=== PATIENT | female | born 1985 | race American Indian/Alaskan Native ===

== ENCOUNTER 2016-10-01 02:27 | Emergency (ER) | payer MEDICAID ==
[2016-10-01 03:40] LABS: Basophils % (Auto) 0.4 % (0.0-1.8); Eosinophils % (Auto) 1.8 % (0.0-4.3); Hematocrit 35.5 % (30.3-42.9); Hemoglobin 11.4 gm/dl (10.1-14.3); Mean Corpuscular HGB Conc 32 % (30-34); Mean Corpuscular Hemoglobin 27 pg (28-32); Mean Corpuscular Volume 84 fl (79-97); Platelet Count 188 K/mm3 (140-440); Red Blood Count 4.24 M/mm3 (3.65-5.03); Red Cell Distribution Width 15.2 % (13.2-15.2); White Blood Count 6.9 K/mm3 (4.5-11.0)
[2016-10-01 03:54] LABS: Alanine Aminotransferase 8 units/L (7-56); Albumin 3.8 g/dL (3.9-5); Alkaline Phosphatase 82 units/L (35-129); BUN/Creatinine Ratio 18.33; Bilirubin,Total 0.2 mg/dL (0.1-1.2); Blood Urea Nitrogen 11 mg/dL (7-17); Calcium 8.8 mg/dL (8.4-10.2); Carbon Dioxide 19 mmol/L (22-30); Chloride 100.9 mmol/L (98-107); Glucose 95 mg/dL (65-100); Lipase 56 units/L (13-60); Potassium 3.8 mmol/L (3.6-5.0); Sodium 136 mmol/L (137-145); Total Protein 7.6 g/dL (6.3-8.2)
[2016-10-01 04:02] LABS: Anion Gap 20 mmol/L
[2016-10-01 09:44] LABS: Bacteria,Urine 1+ /HPF (Negative); Bilirubin,Urine NEG (Negative); Blood,Urine NEG (Negative); Ketones,Urine 80 mg/dL (Negative); Leukocyte Esterase,Urine LG (Negative); Mucus,Urine 3+ /HPF; Nitrite,Urine NEG (Negative); Urobilinogen,Urine < 2.0 mg/dL (<2.0)
[2016-10-01] MEDS ORDERED: NORCO 5/325 PO ONE (10:41)
--- NOTE | 2016-10-01 10:53 | Emergency Department Report ---
ED Abdominal Pain HPI - General Chief Complaint: Abdominal Pain Stated Complaint: MOUTH PAIN Time Seen by Provider: 10/01/16 10:25 Source: patient Mode of arrival: Ambulatory Limitations: No Limitations - History of Present Illness Initial Comments: 31-year-old female presents to the emergency department complaining of abdominal pain and mouth pain. Patient states her mouth pain is along her gumline and she is seeing her dentist about this. She states her abdominal pain has been intermittent since she found out she was . Patient is approximately 4 months . She has not seen an [employer] [employer], but is scheduled for her first appointment in 3 days. Patient reports aching pain in the middle of her abdomen that doesn't radiate. She reports pain became worse after dancing at a [employer] recently. She denies nausea, vomiting, dysuria, hematuria, vaginal bleeding, or vaginal discharge. There are no other complaints. MD Complaint: abdominal pain -: Gradual, month(s) (3) Location: periumbilical Radiation: none Migration to: no migration Severity: mild Quality: aching Consistency: intermittent Improves With: nothing Worsens With: nothing Associated Symptoms: denies other symptoms - Related Data Previous Rx's Medication Instructions Recorded Last Taken Type Vit W-Ca,Fe,FA(<1 mg) 1 each PO QDAY #30 tablet 07/06/16 Unknown Rx [ Vitamins] HYDROcodone/APAP 5-325 [[address] 1 each PO Q6HR PRN #10 tablet 10/01/16 Unknown Rx 5/325] Nitrofurantoin [place]/M-Cryst 100 mg PO Q12HR #14 capsule 10/01/16 Unknown Rx [Macrobid CAP] Allergies Allergy/AdvReac Type Severity Reaction Status Date / Time No Known Allergies Allergy Unverified 05/25/16 03:23 ED Review of Systems ROS: Stated complaint: MOUTH PAIN Other details as noted in HPI Comment: All other systems reviewed and negative Gastrointestinal: abdominal pain ED Past Medical Hx - Past Medical History Previous Medical History?: Yes Hx Psychiatric Treatment: Yes (Bipolar, Schizophrenia) - Surgical History Past Surgical History?: No - Family History Family history: no significant - Social History Smoking Status: Former Smoker Substance Use Type: None - Medications Home Medications: Home Medications Medication Instructions Recorded Confirmed Last Taken Type Vit W-Ca,Fe,FA(<1 mg) 1 each PO QDAY #30 tablet 07/06/16 Unknown Rx [ Vitamins] HYDROcodone/APAP 5-325 [[address] 1 each PO Q6HR PRN #10 tablet 10/01/16 Unknown Rx 5/325] Nitrofurantoin [place]/M-Cryst 100 mg PO Q12HR #14 capsule 10/01/16 Unknown Rx [Macrobid CAP] ED Physical Exam - General Limitations: No Limitations General appearance: alert, in no apparent distress - Head Head exam: Present: atraumatic, normocephalic - Eye Eye exam: Present: normal appearance, PERRL, EOMI - ENT ENT exam: Present: normal exam, normal orophraynx, mucous membranes moist - Neck Neck exam: Present: normal inspection, full ROM. Absent: tenderness - Respiratory Respiratory exam: Present: normal lung sounds bilaterally. Absent: respiratory distress - Cardiovascular Cardiovascular Exam: Present: regular rate, normal rhythm, normal heart sounds - GI/Abdominal GI/Abdominal exam: Present: soft, normal bowel sounds. Absent: distended, tenderness - Extremities Exam Extremities exam: Present: normal inspection, full ROM. Absent: tenderness - Back Exam Back exam: Present: normal inspection, full ROM. Absent: tenderness - Neurological Exam Neurological exam: Present: alert, oriented X3. Absent: motor sensory deficit - Skin Skin exam: Present: warm, dry, intact ED Course Vital Signs 10/01/16 02:42 Temperature 98.7 F Pulse Rate 91 H Respiratory 18 Rate Blood Pressure 122/73 O2 Sat by Pulse 100 Oximetry ED Medical Decision Making - Lab Data Result diagrams: 10/01/16 02:55 10/01/16 02:55 - Medical Decision Making Lab results reviewed and discussed with the patient. heart tones at bedside measured by nursing are 144 bpm. Review of previous visit shows that the patient had an ultrasound showing an intrauterine . Patient will be discharged home with a prescription for antibodies for urinary tract infection to follow up with her [employer]. - Differential Diagnosis abdominal pain in , UTI Critical care attestation.: If time is entered above; I have spent that time in minutes in the direct care of this critically ill patient, excluding procedure time. ED Disposition Clinical Impression: Abdominal pain affecting UTI (urinary tract infection) Qualifiers: Urinary tract infection type: acute cystitis Hematuria presence: without hematuria Qualified Code(s): N30.00 - Acute cystitis without hematuria Disposition: DISCHARGED TO HOME OR SELFCARE Is pt being admited?: No Condition: Stable Instructions: Abdominal Pain (ED) Prescriptions: Nitrofurantoin [place]/M-Cryst [Macrobid CAP] 100 mg PO Q12HR #14 capsule HYDROcodone/APAP 5-325 [[address] 5/325] 1 each PO Q6HR PRN #10 tablet PRN Reason: Pain Referrals: PRIMARY CARE, [Primary Care Provider] - 3-5 Days Time of Disposition: 10:56
[2016-10-01 11:26] VITALS: BP 124/61
== END 2016-10-01 11:25 | disposition home or self-care (01) ==
LOC: ED 02:27
DX: O23.12 Infections of bladder in pregnancy, second trimester (principal); N30.00 Acute cystitis without hematuria; O99.332 Smoking (tobacco) complicating pregnancy, second trimester; F31.9 Bipolar disorder, unspecified; F20.9 Schizophrenia, unspecified; Z3A.00 Weeks of gestation of pregnancy not specified
CPT/HCPCS: 36415; 80053; 81001; 81025; 83690; 85025; 99284

== ENCOUNTER 2016-10-28 08:27 | Outpatient (CLI) | payer MEDICAID ==
[2016-10-28 10:00] VITALS: BP 112/60
[2016-10-28] MEDS ORDERED: LACTATED RINGERS 500 ML IV ONE (10:00)
[2016-10-28 13:01] LABS: Urine Drugs of Abuse Note Disclamer
--- NOTE | 2016-10-29 10:29 | Ultrasound Report ---
OB LIMITED History: Abdominal trauma during , pain. Technique: Transabdominal ultrasound with Doppler interrogation. Gestation: Single Position: Cephalic Placenta: Posterior Placental Grade: 0 Heart Rate: 149 BPM
== END 2016-10-28 12:10 | disposition home or self-care (01) ==
LOC: EDSTATUS 09:26 → TRG 09:30
PROVIDERS: ATTEND Obstetrics & Gynecology
DX: O26.892 Other specified pregnancy related conditions, second trimester (principal); S89.90XA Unspecified injury of unspecified lower leg, initial encounter; W19.XXXA Unspecified fall, initial encounter; Z3A.26 26 weeks gestation of pregnancy; Y93.89 Activity, other specified; Y92.89 Other specified places as the place of occurrence of the external cause; Y99.8 Other external cause status
CPT/HCPCS: 76815; 80307; 82962; J7120

== ENCOUNTER 2016-11-18 12:50 | Emergency (ER) | payer MEDICAID ==
--- NOTE | 2016-11-18 13:17 | Emergency Department Report ---
Chief Complaint: Psych Stated Complaint: MENTAL EVAL Time Seen by Provider: 11/18/16 13:10 - HPI History of Present Illness: 31-year-old -[place] female with a past medical history of schizophrenia bipolar diabetes Control and Reports That She Is 12 Weeks Comes in for Altered Mental Status. Patient Woke up This A.M. per Friend That Brought Her in a Reports That She Has Been Acting Weird She Was Found Plan in the Toilet This Morning Patient Stays Confusing Triage. - Exam Vital Signs: Vital Signs 11/18/16 13:04 Temperature 98.7 F Pulse Rate 112 H Respiratory 18 Rate Blood Pressure 107/68 Physical Exam: Since alert not very oriented pupils are pinpoint not following commands very well, heart rate tachycardia respiratory clear to auscultation abdomen soft nontender, MSE screening note: Focused history and physical exam performed. Due to findings the following was ordered: Altered mental status protocol initiated. EKG has been ordered patient be evaluated in the back Main ER ED Disposition for MSE Condition: Stable
[2016-11-18 14:07] LABS: Basophils % (Auto) 0.3 % (0.0-1.8); Eosinophils % (Auto) 0.1 % (0.0-4.3); Hematocrit 33.6 % (30.3-42.9); Hemoglobin 10.9 gm/dl (10.1-14.3); Mean Corpuscular HGB Conc 33 % (30-34); Mean Corpuscular Hemoglobin 28 pg (28-32); Mean Corpuscular Volume 85 fl (79-97); Platelet Count 155 K/mm3 (140-440); Red Blood Count 3.97 M/mm3 (3.65-5.03); Red Cell Distribution Width 14.5 % (13.2-15.2); White Blood Count 7.8 K/mm3 (4.5-11.0)
[2016-11-18 14:10] LABS: Alanine Aminotransferase 6 units/L (7-56); Albumin 3.5 g/dL (3.9-5); Albumin/Globulin Ratio 0.9 %; Alkaline Phosphatase 85 units/L (35-129); Anion Gap 18 mmol/L; BUN/Creatinine Ratio 11.42; Bilirubin,Total 0.5 mg/dL (0.1-1.2); Blood Urea Nitrogen 8 mg/dL (7-17); Calcium 8.7 mg/dL (8.4-10.2); Carbon Dioxide 19 mmol/L (22-30); Chloride 99.5 mmol/L (98-107); Glucose 90 mg/dL (65-100); Magnesium 1.8 mg/dL (1.7-2.3); Potassium 3.7 mmol/L (3.6-5.0); Sodium 133 mmol/L (137-145); Total Protein 7.3 g/dL (6.3-8.2)
[2016-11-18 16:06] LABS: Urine Drugs of Abuse Note Disclamer
[2016-11-18 16:27] LABS: Bilirubin,Urine NEG (Negative); Blood,Urine NEG (Negative); Ketones,Urine 80 mg/dL (Negative); Leukocyte Esterase,Urine NEG (Negative); Mucus,Urine 3+ /HPF; Nitrite,Urine NEG (Negative)
[2016-11-18] MEDS ORDERED: HALDOL IM ONE (18:36)
[2016-11-18] MEDS ORDERED: NACL 0.9% 1000 ML IV ONE (18:36)
--- NOTE | 2016-11-18 18:45 | Emergency Department Report ---
HPI <MARINA VALLES - Last Filed: 11/18/16 21:09> - HPI HPI: Chief complaint: Abnormal behavior HPI: Patient is a 31-year-old female with a history of bipolar disorder and schizophrenia who lives in a personal correction and is . Once patient became she quit taking her psychiatric medications. It appears that her only care has been when she's come to the hospital and her last visit was October 28 when she was seen in L&D and an ultrasound showed that at that time she was 22 weeks 6 days with a single IUP. Patient did not follow-up with STORAGE AND BACKUP ADMINISTRATOR that she saw in L&D. Patient went from the personal correction that she was in in [place] and visited [place] according to her friend last night and this morning she got up she began acting strange. Patient had a bowel movement and was noted to be playing with her stool. Patient does not have any complaints but is not really answering any questions. Patient's roommate where she lives called a friend of the patient's tube brought her here to the emergency department. He unfortunately cannot answer very many questions either. He does state this is not how she normally acts. Mode of arrival: private car Source: Patient old chart Began: Noticed this morning Duration: Continuous Context: See above Quality: Unable to assess Severity: Unable to assess Improved with: Unable to assess Worsened with: Unable to assess Associated signs and symptoms: Unable to assess <BRIAN WELLER - Last Filed: 11/19/16 10:32> - General Chief Complaint: Psych Time Seen by Provider: 11/18/16 13:10 ED Past Medical Hx <MARINA VALLES - Last Filed: 11/18/16 21:09> - Past Medical History Hx Diabetes: Yes (uncontrolled) Hx Psychiatric Treatment: Yes (Bipolar, Schizophrenia) - Social History Smoking Status: Unknown if ever smoked Substance Use Type: None <BRIAN WELLER - Last Filed: 11/19/16 10:32> - Medications Home Medications: Home Medications Medication Instructions Recorded Confirmed Last Taken Type Vit W-Ca,Fe,FA(<1 mg) 1 each PO QDAY #30 tablet 07/06/16 11/18/16 Unknown Rx [ Vitamins] HYDROcodone/APAP 5-325 [[place] 1 each PO Q6HR PRN #10 tablet 10/01/16 11/18/16 Unknown Rx 5/325] Nitrofurantoin [place]/M-Cryst 100 mg PO Q12HR #14 capsule 10/01/16 11/18/16 Unknown Rx [Macrobid CAP] ED Review of Systems ROS: Stated complaint: MENTAL EVAL Other details as noted in HPI <MARINA VALLES - Last Filed: 11/18/16 21:09> ROS: Stated complaint: MENTAL EVAL Other details as noted in HPI Comment: Unobtainable due to pts medical conditions (patient is not answering any questions) <BRIAN WELLER - Last Filed: 11/19/16 10:32> Physical Exam - Physical Exam Vital Signs: Vital Signs 11/18/16 11/18/16 11/18/16 13:04 13:50 13:51 Temperature 98.7 F 98.0 F Pulse Rate 112 H 90 Respiratory 18 16 16 Rate Blood Pressure 107/68 Blood Pressure 106/64 [Left] O2 Sat by Pulse 100 100 Oximetry 11/18/16 19:48 Temperature 98.8 F Pulse Rate 93 H Respiratory 18 Rate Blood Pressure Blood Pressure 126/57 [Left] O2 Sat by Pulse 98 Oximetry <MARINA VALLES - Last Filed: 11/18/16 21:09> - Physical Exam Vital Signs: Vital Signs 11/18/16 11/18/16 11/18/16 13:04 13:50 13:51 Temperature 98.7 F 98.0 F Pulse Rate 112 H 90 Respiratory 18 16 16 Rate Blood Pressure 107/68 Blood Pressure 106/64 [Left] O2 Sat by Pulse 100 100 Oximetry Physical Exam: GENERAL: The patient is well-developed well-nourished . HEENT: Normocephalic. Atraumatic. Extraocular motions are intact. Patient has dry mucous membranes. NECK: Supple. No meningitic signs are noted. There is no adenopathy noted. CHEST/LUNGS: Clear to auscultation. There is no respiratory distress noted. HEART/CARDIOVASCULAR: Regular. There is no tachycardia. There is no gallop rub or murmur. ABDOMEN: Abdomen is soft, nontender. Patient has normal bowel sounds. Abdomen is gravid heart tones are 170 in the left lower quadrant SKIN: There is no rash. There is no edema. There is no diaphoresis. NEURO: The patient is awake, alert, and noncommunicative. Patient moves all extremities and is able to ambulate. There are no focal deficits noted MUSCULOSKELETAL: There is no tenderness or deformity. There is no limitation range of motion. There is no evidence of acute injury. <BRIAN WELLER - Last Filed: 11/19/16 10:32> ED Course Vital Signs 11/18/16 11/18/16 11/18/16 13:04 13:50 13:51 Temperature 98.7 F 98.0 F Pulse Rate 112 H 90 Respiratory 18 16 16 Rate Blood Pressure 107/68 Blood Pressure 106/64 [Left] O2 Sat by Pulse 100 100 Oximetry 11/18/16 19:48 Temperature 98.8 F Pulse Rate 93 H Respiratory 18 Rate Blood Pressure Blood Pressure 126/57 [Left] O2 Sat by Pulse 98 Oximetry <MARINA VALLES - Last Filed: 11/18/16 21:09> Vital Signs 11/18/16 11/18/16 11/18/16 13:04 13:50 13:51 Temperature 98.7 F 98.0 F Pulse Rate 112 H 90 Respiratory 18 16 16 Rate Blood Pressure 107/68 Blood Pressure 106/64 [Left] O2 Sat by Pulse 100 100 Oximetry - Reevaluation(s) Reevaluation #1: 11/18/16 Discussed patient with STORAGE AND BACKUP ADMINISTRATOR and states that Haldol is a category C can be given outside of the first trimester and recommended that we try one dose of Haldol. Discussed with Dr. Aragon's partner saw the patient on L&D in October and states the patient never followed up or entered their practice. Patient herself cannot give me any history. She will allow you to evaluate her and can be calmed with talking. 11/18/16 20:10 Discussed patient with her STORAGE AND BACKUP ADMINISTRATOR and states that there is very little risk to the fetus with a head CT. Patient will be shielded. Mental health crisis spoke with Dr. Lang psychiatrist who will see the patient in the morning and probably start her on what to do at that time. 11/19/16 10:19 Patient was evaluated by psychiatry this morning and [address] scan was reviewed and positive for sinusitis. Will start patient on a Zithromax. <BRIAN WELLER - Last Filed: 11/19/16 10:32> ED Medical Decision Making - Lab Data Result diagrams: 11/18/16 13:33 11/18/16 13:33 - Radiology Data Radiology results: report reviewed (ct head: naf) <HAIMARINA C - Last Filed: 11/18/16 21:09> - Lab Data Result diagrams: 11/18/16 13:33 11/18/16 13:33 Laboratory Tests 11/18/16 11/18/16 11/18/16 13:33 13:33 13:33 Lactic Acid 0.7 ALT 6 L Albumin 3.5 L TSH 1.490 HCG, Quant Ur Specific [place] Urine Protein Urine Ketones Urine Blood Urine Nitrite Urine Bilirubin Urine Urobilinogen Ur Leukocyte Esterase Urine WBC (Auto) Urine RBC (Auto) U Epithel Cells (Auto) Urine HCG, Qual Salicylates Urine Opiates Screen Urine Methadone Screen Acetaminophen Ur Barbiturates Screen Ur Phencyclidine Scrn Ur Amphetamines Screen U Benzodiazepines Scrn Urine Cocaine Screen U Marijuana (THC) Screen Plasma/Serum Alcohol 11/18/16 11/18/16 11/18/16 13:33 13:33 13:33 Lactic Acid ALT Albumin TSH HCG, Quant 7794 H Ur Specific [place] Urine Protein Urine Ketones Urine Blood Urine Nitrite Urine Bilirubin Urine Urobilinogen Ur Leukocyte Esterase Urine WBC (Auto) Urine RBC (Auto) U Epithel Cells (Auto) Urine HCG, Qual Salicylates < 0.3 L Urine Opiates Screen Urine Methadone Screen Acetaminophen < 15.0 Ur Barbiturates Screen Ur Phencyclidine Scrn Ur Amphetamines Screen U Benzodiazepines Scrn Urine Cocaine Screen U Marijuana (THC) Screen Plasma/Serum Alcohol 11/18/16 11/18/16 11/18/16 13:33 16:01 16:05 Lactic Acid 0.8 ALT Albumin TSH HCG, Quant Ur Specific [place] 1.033 H Urine Protein 100 mg/dl Urine Ketones 80 Urine Blood Neg Urine Nitrite Neg Urine Bilirubin Neg Urine Urobilinogen 2.0 Ur Leukocyte Esterase Neg Urine WBC (Auto) 1.0 Urine RBC (Auto) 1.0 U Epithel Cells (Auto) 1.0 Urine HCG, Qual Positive A Salicylates Urine Opiates Screen Urine Methadone Screen Acetaminophen Ur Barbiturates Screen Ur Phencyclidine Scrn Ur Amphetamines Screen U Benzodiazepines Scrn Urine Cocaine Screen U Marijuana (THC) Screen Plasma/Serum Alcohol < 0.01 11/18/16 16:05 Lactic Acid ALT Albumin TSH HCG, Quant Ur Specific [place] Urine Protein Urine Ketones Urine Blood Urine Nitrite Urine Bilirubin Urine Urobilinogen Ur Leukocyte Esterase Urine WBC (Auto) Urine RBC (Auto) U Epithel Cells (Auto) Urine HCG, Qual Salicylates Urine Opiates Screen Presumptive negative Urine Methadone Screen Presumptive negative Acetaminophen Ur Barbiturates Screen Presumptive negative Ur Phencyclidine Scrn Presumptive negative Ur Amphetamines Screen Presumptive negative U Benzodiazepines Scrn Presumptive negative Urine Cocaine Screen Presumptive negative U Marijuana (THC) Screen Presumptive negative Plasma/Serum Alcohol - Medical Decision Making Discussed patient with mental health and STORAGE AND BACKUP ADMINISTRATOR. We will get a CAT scan of her head just to make sure there is no structural abnormality but I feel most likely thing is that this is secondary to her schizophrenia. We'll observe the patient here in the emergency department overnight and have her seen by psychiatry in the morning unless there is some unexpected abnormality on her CT brain. <BRIAN WELLER - Last Filed: 11/19/16 10:32> Critical care attestation.: If time is entered above; I have spent that time in minutes in the direct care of this critically ill patient, excluding procedure time. <MARINA VALLES - Last Filed: 11/18/16 21:09> Critical care attestation.: If time is entered above; I have spent that time in minutes in the direct care of this critically ill patient, excluding procedure time. <BRIAN WELLER - Last Filed: 11/19/16 10:32> ED Disposition <MARINA VALLES - Last Filed: 11/18/16 21:09> Is pt being admited?: No Does the pt Need Aspirin: No Time of Disposition: 10:19 (transfer to a psychiatric facility) <BRIAN WELLER - Last Filed: 11/19/16 10:32> Clinical Impression: Schizophrenia Qualifiers: Schizophrenia type: unspecified Qualified Code(s): F20.9 - Schizophrenia, unspecified Disposition: DC/TX PSY HOSP/PSY UNIT Condition: Serious Referrals: PRIMARY CARE,MD [Primary Care Provider] - 3-5 Days
--- NOTE | 2016-11-18 20:50 | Cat Scan Report ---
FINAL REPORT EXAM: CT HEAD/BRAIN WO CON HISTORY: ams COMPARISON: CT of the head from July 2016. TECHNIQUE: Axial images obtained skull base through vertex. FINDINGS: No acute intracranial hemorrhage, midline shift or pathologic extra axial fluid collection. Ventricles and cisterns are normal in size and configuration for the patient's age. Zimmer-white differentiation preserved. Calvarium grossly intact. Mild mucosal thickening of the paranasal sinuses. Tiny amount of fluid within the caudal right mastoid air cells. IMPRESSION: No grossly acute intracranial abnormality.
--- NOTE | 2016-11-19 08:37 | Consultation ---
History of Present Illness - Reason for Consult Consult date: 11/19/16 Reason for consult: Psychiatry Consult Requesting physician: BRIAN WELLER - Chief Complaint Chief complaint: Patient is confused - History of Present Psychiatric Illness Patient is a 31-year-old female with a history of bipolar disorder and schizophrenia who lives in a personal chcf and is . Once patient became she quit taking her psychiatric medications. Upon arrival to patient's room, she was eating and watching TV. I introduced myself and the patient states, "I have no idea what is going on." Patient is disorganized, disheveled, confused, with loose associations during interview. She had to be redirected when asked questions. Patient is a poor historian at this time. When asked, she denies SI/HI and AVH's at this time. Medications and Allergies Allergies Allergy/AdvReac Type Severity Reaction Status Date / Time No Known Allergies Allergy Verified 10/28/16 09:05 Home Medications Medication Instructions Recorded Confirmed Last Taken Type Vit W-Ca,Fe,FA(<1 mg) 1 each PO QDAY #30 tablet 07/06/16 11/18/16 Unknown Rx [ Vitamins] HYDROcodone/APAP 5-325 [[place] 1 each PO Q6HR PRN #10 tablet 10/01/16 11/18/16 Unknown Rx 5/325] Nitrofurantoin [place]/M-Cryst 100 mg PO Q12HR #14 capsule 10/01/16 11/18/16 Unknown Rx [Macrobid CAP] Past psychiatric history - Past Medical History Past Medical History: other Past Surgical History: Other (unable to assess) - past Psychiatric treatment and history Psych: Bipolar, Schizophrenia psychiatric treatment history: Unable to assess - Social History Social history: other (Currently ) Mental Status Exam - Vital signs Last Vital Signs Temp 98 F 11/19/16 06:03 Pulse 83 11/19/16 06:03 Resp 20 11/19/16 06:03 BP 108/43 11/19/16 06:03 Pulse Ox 96 11/19/16 06:03 - Exam Narrative exam: (+) Delusional, (+) Psychosis Orientation: person Affect: flat Mood: congruent with affect Thought content: delusions Thought Process: Loose Associations Perceptions: other (patient denies) Speech: slow Concentration: distractible, unable to pay attention Motor activity: other (Lying upright in bed) Level of consciousness: confused Sleep Symptoms: None (unable to assess) Interaction: pleasant Results Result Diagrams: 11/18/16 13:33 11/18/16 13:33 Abnormal lab results 11/18/16 11/18/16 11/18/16 Range/Units 13:33 13:33 13:33 [place] % (Auto) 8.1 H (0.0-7.3) % Sodium 133 L (137-145) mmol/L Carbon Dioxide 19 L (22-30) mmol/L ALT 6 L (7-56) units/L Albumin 3.5 L (3.9-5) g/dL HCG, Quant 7794 H (0-4) mIU/mL Ur Specific [place] (1.003-1.030) Urine HCG, Qual (Negative) Salicylates (2.8-20.0) mg/dL 11/18/16 11/18/16 Range/Units 13:33 16:05 [place] % (Auto) (0.0-7.3) % Sodium (137-145) mmol/L Carbon Dioxide (22-30) mmol/L ALT (7-56) units/L Albumin (3.9-5) g/dL HCG, Quant (0-4) mIU/mL Ur Specific [place] 1.033 H (1.003-1.030) Urine HCG, Qual Positive A (Negative) Salicylates < 0.3 L (2.8-20.0) mg/dL All other labs normal. Assessment and Plan Assessment and plan: Impression: Hx of Schizophrenia and Bipolar Disorder. Patient is confused and disorganized at this time. Patient has been off psychiatric medication since she became . Patient is currently . Recommendation: Initiate 1013 if indicated and reassess tomorrow for possible transfer to inpatient psychiatry services.
[2016-11-19] MEDS ORDERED: ZITHROMAX PO SCH (11:00)
[2016-11-19] MEDS: TRIMOX PO SCH ×2 (14:18→21:03)
--- NOTE | 2016-11-19 18:44 | Ultrasound Report ---
FINAL REPORT EXAM: US OB \T\gt; = 14 WEEKS FETUS HISTORY: , altered mental status COMPARISONS: 07/06/2016 FINDINGS: Limited transabdominal grayscale, color and M-mode 2nd trimester ultrasound Single living intrauterine in breech presentation with recorded cardiac activity of 130 beats per minute. Amniotic fluid volume is subjectively normal and amniotic fluid index measures approximately 13.5 cm. Biparietal diameter is 6.1 cm. Head circumference is 23.9 cm. Abdominal circumference is 20 cm. Femoral length is 4.7 cm. Composite of these measurements results in estimated gestational age of 24 weeks 4 days and estimated delivery date of 03/07/2017, which is concordant with prior establish dating. No gross abnormality is identified. The skin line overlying the spine and diaphragm are suboptimally visualized on this exam. IMPRESSION: Single living intrauterine without acute complication identified.
[2016-11-19 21:52] VITALS: BP 108/58
[2016-11-19] MEDS ORDERED: HALDOL PO SCH (22:00)
== END 2016-11-19 23:00 ==
LOC: ED 12:50 → EEVIPCON 12:50 → ED 11-19 23:00
DX: O99.342 Other mental disorders complicating pregnancy, second trimester (principal); F31.9 Bipolar disorder, unspecified; F20.9 Schizophrenia, unspecified; Z3A.28 28 weeks gestation of pregnancy
CPT/HCPCS: 36415; 70450; 80053; 80307; 81001; 81025; 82140; 82962; 83735; 84443; 84702; 85025; 93005; 93010; 96360; 96361; 96372; 99285; G0480; J1630; J7030; 80320

== ENCOUNTER 2016-12-27 12:54 | Inpatient (IN) | payer MEDICAID ==
[2016-12-27] MEDS ORDERED: ZOFRAN IV PRN (13:08)
[2016-12-27] MEDS ORDERED: TYLENOL PO PRN (13:08)
[2016-12-27] MEDS ORDERED: COLACE PO PRN (13:08)
[2016-12-27] MEDS ORDERED: ROBITUSSIN DM PO PRN (13:08)
[2016-12-27] MEDS ORDERED: MYLICON PO PRN (13:08)
[2016-12-27] MEDS ORDERED: BENADRYL PO PRN (13:08)
[2016-12-27] MEDS: LACTATED RINGERS 1,000 ML IV SCH (15:15)
[2016-12-27 15:16] LABS: Basophils % (Auto) 0.5 % (0.0-1.8); Eosinophils % (Auto) 1.7 % (0.0-4.3); Hematocrit 29.9 % (30.3-42.9); Hemoglobin 9.6 gm/dl (10.1-14.3); Mean Corpuscular HGB Conc 32 % (30-34); Mean Corpuscular Hemoglobin 27 pg (28-32); Mean Corpuscular Volume 85 fl (79-97); Platelet Count 180 K/mm3 (140-440); Red Blood Count 3.51 M/mm3 (3.65-5.03); Red Cell Distribution Width 14.7 % (13.2-15.2)
[2016-12-27 15:22] LABS: Bacteria,Urine 1+ /HPF (Negative); Bilirubin,Urine NEG (Negative); Blood,Urine SM (Negative); Ketones,Urine NEG (Negative); Leukocyte Esterase,Urine LG (Negative); Mucus,Urine FEW /HPF; Nitrite,Urine NEG (Negative); Protein,Urine <15 mg/dL mg/dL (Negative); Urobilinogen,Urine < 2.0 mg/dL (<2.0)
[2016-12-27 15:34] LABS: Alanine Aminotransferase 7 units/L (7-56); Albumin 3.2 g/dL (3.9-5); Alkaline Phosphatase 139 units/L (35-129); Anion Gap 17 mmol/L; Bilirubin,Total 0.2 mg/dL (0.1-1.2); Blood Urea Nitrogen 6 mg/dL (7-17); Calcium 8.8 mg/dL (8.4-10.2); Carbon Dioxide 20 mmol/L (22-30); Chloride 103.6 mmol/L (98-107); Glucose 78 mg/dL (65-100); Potassium 3.8 mmol/L (3.6-5.0); Sodium 137 mmol/L (137-145)
--- NOTE | 2016-12-27 15:38 | History and Physical Report ---
History of Present Illness Date of examination: 12/27/16 (pt sent to Triage by an outside provider for antibiotic therapy) Date of admission: 12/27/16 13:09 Chief complaint: painful and frequent urination History of present illness: EDC 02/16/17 32w5d Pt began her PNC 10-18-16 She is going to [facility]. Pt states she has mental illness. Has been on Risperidone and Benztropine. Pt denies ETOH, street drugs, smoking. Pt was admitted to psych facility in November and they started her on her meds. Past History - Obstetrical History Expected Date of Delivery: 02/16/17 Actual Gestation: 32 Week(s) 5 Day(s) : 2 Para: 1 Number of Living Children: 1 Medications and Allergies Allergies Allergy/AdvReac Type Severity Reaction Status Date / Time No Known Allergies Allergy Verified 10/28/16 09:05 Home Medications Medication Instructions Recorded Confirmed Last Taken Type Vit W-Ca,Fe,FA(<1 mg) 1 each PO QDAY #30 tablet 07/06/16 11/18/16 Unknown Rx [ Vitamins] HYDROcodone/APAP 5-325 [[place] 1 each PO Q6HR PRN #10 tablet 10/01/16 11/18/16 Unknown Rx 5/325] Nitrofurantoin [place]/M-Cryst 100 mg PO Q12HR #14 capsule 10/01/16 11/18/16 Unknown Rx [Macrobid CAP] Active Meds: Active Medications Acetaminophen (Tylenol) 650 mg PO Q4H PRN PRN Reason: Pain MILD(1-3)/Fever >100.5/LE Diphenhydramine HCl (Benadryl) 25 mg PO Q6H PRN PRN Reason: Itching Docusate Sodium (Colace) 100 mg PO Q12H PRN PRN Reason: Constipation Guaifenesin (Robitussin Dm) 10 ml PO Q6H PRN PRN Reason: Cough Ceftriaxone Sodium (Rocephin/Ns 1 Gm/50 Ml) 1 gm in 50 mls @ 100 mls/hr IV Q12HR LUKE PRN Reason: Protocol Lactated Ringer's (Lactated Ringers) 1,000 mls @ 125 mls/hr IV DIRECT [facility]KE Last Admin: 12/27/16 15:15 Dose: 125 mls/hr Multivitamins/Iron/Calcium ( Vitamin) 1 each PO QDAY [facility] Ondansetron HCl (Zofran) 4 mg IV Q6H PRN PRN Reason: Nausea And Vomiting Simethicone (Mylicon) 80 mg PO Q6H PRN PRN Reason: Gas pain Trimethoprim/Sulfamethoxazole (Bactrim Ds) 1 each PO Q12HR [facility]KE Review of Systems Psychiatric: memory loss, difficulties concentrating - Vital Signs Vital signs: Vital Signs Pulse Pulse Ox 85 98 12/27/16 13:48 12/27/16 13:48 Temp Pulse Resp BP Pulse Ox 97.6 F 85 20 114/57 100 12/27/16 13:52 12/27/16 14:08 12/27/16 13:52 12/27/16 13:52 12/27/16 14:08 - Physical Exam Breasts: Positive: deferred Cardiovascular: Regular rate Lungs: Positive: Normal air movement Abdomen: Positive: normal appearance Genitourinary (Female): Positive: normal external genitalia Extremities: Positive: normal Deep Tendon Reflex Grade: Normal +2 - Obstetrical FHR: category 1 Uterine Contraction Monitor Mode: External Uterine Contraction Pattern: Absent Uterine Tone Measurement Phase: Resting Results Result Diagrams: 12/27/16 13:31 Abnormal lab results 12/27/16 Range/Units 13:31 RBC 3.51 L (3.65-5.03) M/mm3 Hgb 9.6 L (10.1-14.3) gm/dl Hct 29.9 L (30.3-42.9) % MCH 27 L (28-32) pg All other labs normal. Following are from her PNR: O+ negative antibody SCT negative GTT 84 / A1c 4.6 RPR NR HIV NR Rubella IMMUNE Hep B negative UDS negative Assessment and Plan [facility] called and spoke to [facility] in Triage and alterted her that pt may come to us due to distance to [facility]. [facility] is closer. Pt PNR was sent over with a urine culture result of Acinetobacter baumanni the provider of record was asking for pt to receive IV antibiotics for treatment. I called and spoke with Dr.G. Clarke she states pt was instructed to go to [facility] but was unable to make it there so they instructed her to go to the closest hospital. Pt only needs IV abx to treat UTI. Consulted with . Pt will be admitted to APU and given antibiotics. Case Mgt to see pt. also a Psych consult was ordered. I spoke with both and they will see the pt. Pt is A&O X 3 and seems to be aware of her reason for admission. Plan: 1. APU 2. NST 3. CBC, CMP, UA 4. Rocephin IV & Bactrim DS po 5. Consults: CM & MH
[2016-12-27 16:01] LABS: Albumin/Globulin Ratio 0.9 %; Total Protein 6.8 g/dL (6.3-8.2)
[2016-12-27] MEDS: ROCEPHIN/NS 1 GM/50 ML 1 GM/50 ML BAG IV SCH (17:49)
[2016-12-27] MEDS: BACTRIM DS PO SCH (17:49)
--- NOTE | 2016-12-28 05:50 | Progress Note ---
Assessment and Plan - Patient Problems (1) 32 weeks gestation of Current Visit: Yes Status: Acute (2) Cystitis during in third trimester, antepartum Onset Date: ~12/26/16 Current Visit: Yes Status: Acute Plan to address problem: Pt awake sitting in bed NST reactive. VSS No ctx. Antibiotics being given as scheduled. Pt's only c/o mouth pain "I have a loose tooth." We talked about her seeing a dentist after d/c. Encouraged her to ask her provider for a dental letter. Waiting for mental health to see pt Spoke with Darwin this morning to inquire about consult. He states someone will see her this AM. Will continue POC as ordered. Subjective - Subjective Date of service: 12/28/16 (A&O X 3) Principal diagnosis: IUP @ 32w6d; cystitis Interval history: EDC 02/16/17 32w5d Pt began her PNC 10-18-16 She is going to [facility]. Pt states she has mental illness. Has been on Risperidone and Benztropine. Pt denies ETOH, street drugs, smoking. Pt was admitted to psych facility in November and they started her on her meds. Patient reports: movement normal Objective - Vital Signs Vital Signs: Vital Signs - 12hr 12/27/16 12/27/16 12/27/16 18:06 19:20 20:32 Temperature 98.4 F 96.6 F L Pulse Rate 88 82 Respiratory 20 18 Rate Blood Pressure 112/56 115/54 12/27/16 12/28/16 12/28/16 20:33 00:10 05:19 Temperature 96.7 F L Pulse Rate 86 83 Respiratory 16 Rate Blood Pressure 113/54 110/54 12/28/16 05:40 Temperature 97.6 F Pulse Rate Respiratory 18 Rate Blood Pressure - Exam Breasts: deferred Cardiovascular: Regular rate Lungs: Normal air movement Abdomen: Present: normal appearance, soft. Absent: distention, tenderness Vulva: both: normal Uterus: Present: normal FHR: auscultation normal, category 1 (reactive NST) Uterine Contraction Pattern: Absent Uterine Tone Measurement Phase: Resting Extremities: edema Deep Tendon Reflex Grade: Normal +2 - Labs Labs: Abnormal Labs 12/27/16 12/27/16 13:31 13:31 RBC 3.51 L Hgb 9.6 L Hct 29.9 L MCH 27 L Carbon Dioxide 20 L BUN 6 L Creatinine 0.6 L Alkaline Phosphatase 139 H Albumin 3.2 L Laboratory Results - last 24 hr 12/27/16 12/27/16 12/27/16 13:31 13:31 14:30 WBC 8.0 RBC 3.51 L Hgb 9.6 L Hct 29.9 L MCV 85 MCH 27 L MCHC 32 RDW 14.7 Plt Count 180 Lymph % (Auto) 27.9 Branch % (Auto) 6.9 Eos % (Auto) 1.7 Baso % (Auto) 0.5 Lymph # 2.2 Branch # 0.5 Eos # 0.1 Baso # 0.0 Seg Neutrophils % 63.0 Seg Neutrophils # 5.0 Sodium 137 Potassium 3.8 Chloride 103.6 Carbon Dioxide 20 L Anion Gap 17 BUN 6 L Creatinine 0.6 L Estimated GFR > 60 BUN/Creatinine Ratio 10.00 Glucose 78 Calcium 8.8 Total Bilirubin 0.2 AST 13 ALT 7 Alkaline Phosphatase 139 H Total Protein 6.8 Albumin 3.2 L Albumin/Globulin Ratio 0.9 Urine Color Yellow Urine Turbidity Clear Urine pH 6.0 Ur Specific [place] 1.014 Urine Protein <15 mg/dl Urine Glucose (UA) Neg Urine Ketones Neg Urine Blood Sm Urine Nitrite Neg Urine Bilirubin Neg Urine Urobilinogen < 2.0 Ur Leukocyte Esterase Lg Urine WBC (Auto) 1.0 Urine RBC (Auto) 21.0 U Epithel Cells (Auto) 3.0 Urine Bacteria (Auto) 1+ Urine Mucus Few Blood Type Antibody Screen JACKSON Antibody Screen 12/27/16 14:30 WBC RBC Hgb Hct MCV MCH MCHC RDW Plt Count Lymph % (Auto) Branch % (Auto) Eos % (Auto) Baso % (Auto) Lymph # Branch # Eos # Baso # Seg Neutrophils % Seg Neutrophils # Sodium Potassium Chloride Carbon Dioxide Anion Gap BUN Creatinine Estimated GFR BUN/Creatinine Ratio Glucose Calcium Total Bilirubin AST ALT Alkaline Phosphatase Total Protein Albumin Albumin/Globulin Ratio Urine Color Urine Turbidity Urine pH Ur Specific [place] Urine Protein Urine Glucose (UA) Urine Ketones Urine Blood Urine Nitrite Urine Bilirubin Urine Urobilinogen Ur Leukocyte Esterase Urine WBC (Auto) Urine RBC (Auto) U Epithel Cells (Auto) Urine Bacteria (Auto) Urine Mucus Blood Type O POSITIVE Antibody Screen TNR JACKSON Antibody Screen Negative
[2016-12-28] MEDS ORDERED: ROCEPHIN/NS 1 GM/50 ML 1 GM/50 ML BAG IV SCH ×2 (06:00→10:00)
[2016-12-28] MEDS: BACTRIM DS PO SCH ×2 (06:14→17:07)
[2016-12-28] MEDS: ROCEPHIN/NS 1 GM/50 ML 1 GM/50 ML BAG IV SCH (06:15)
[2016-12-28] MEDS: LACTATED RINGERS 1,000 ML IV SCH ×2 (06:18→14:21)
--- NOTE | 2016-12-28 07:40 | Event Note ---
Date: 12/28/16 Agree with MW/SUSTAINABILITY ANALYST exam and note. Will con't current management at this time with IV antibx and plan to d/c home after seen and cleared by shakeel and antibx therapy completed.
[2016-12-28] MEDS ORDERED: PRENATAL VITAMIN PO SCH (10:00)
[2016-12-28 13:09] VITALS: BP 120/58
--- NOTE | 2016-12-28 13:48 | Consultation ---
History of Present Illness - Reason for Consult Consult date: 12/28/16 Reason for consult: Mental Health Evaluation Requesting physician: CHELSEA ORNELAS - Chief Complaint Chief complaint: "I am feeling fine today" - History of Present Psychiatric Illness This is a 31 y.o. AA and 32w5d. She was admitted to treat an bacterial infection. Today patient is calm and cooperative during assessment. She was able to tell me the reason she was admitted to [facility] and where she resides. Patient lives at a transitional home in [place], [place]. She was transported here by the transitional home director Joanie Wheatley. Patient is seen at the [facility] ([facility] The patient and the transitional home director was informed by the [facility] staff to go to the nearest hospital for treatment. Currently, patient have been taking Risperdal and Cogentin. Per the patient, she took her medication last on Sunday12/26/2016. She stated, "My medication works for me." Patient denies SI/HI's, AVH's, poor appetite, depression, or sleep disturbance. She denies recreational drug use or consumption of alcohol ( etoh). She admits to being hospitalized Nov 2016 [facility] (psy services). Patient has a 4 year old son that resides with her at the transitional home. Collateral Information (Joanie Wheatley) - Miss Wheatley confirmed that patient reside at a transitional home and have no problem with her returning. She stated since November 2016, patient have not had a psychotic episode. She states that [facility] provides outpatient psy service for the patient. She states that they visit the patient once a week. She confirmed that the patient do have a son who reside at the transitional home with her. Medications and Allergies Allergies Allergy/AdvReac Type Severity Reaction Status Date / Time No Known Allergies Allergy Verified 10/28/16 09:05 Home Medications Medication Instructions Recorded Confirmed Last Taken Type Vit W-Ca,Fe,FA(<1 mg) 1 each PO QDAY #30 tablet 07/06/16 11/18/16 Unknown Rx [ Vitamins] HYDROcodone/APAP 5-325 [[place] 1 each PO Q6HR PRN #10 tablet 10/01/16 11/18/16 Unknown Rx 5/325] Nitrofurantoin [place]/M-Cryst 100 mg PO Q12HR #14 capsule 10/01/16 11/18/16 Unknown Rx [Macrobid CAP] Sulfamethoxazole/Trimethoprim 1 each PO BID #10 tablet 12/28/16 Unknown Rx [Bactrim DS TAB] Active Meds: Active Medications Acetaminophen (Tylenol) 650 mg PO Q4H PRN PRN Reason: Pain MILD(1-3)/Fever >100.5/LE Diphenhydramine HCl (Benadryl) 25 mg PO Q6H PRN PRN Reason: Itching Docusate Sodium (Colace) 100 mg PO Q12H PRN PRN Reason: Constipation Guaifenesin (Robitussin Dm) 10 ml PO Q6H PRN PRN Reason: Cough Lactated Ringer's (Lactated Ringers) 1,000 mls @ 125 mls/hr IV DIRECT [facility] Last Admin: 12/28/16 06:18 Dose: 125 mls/hr Ceftriaxone Sodium (Rocephin/Ns 1 Gm/50 Ml) 1 gm in 50 mls @ 100 mls/hr IV Q12H [facility] PRN Reason: Protocol Multivitamins/Iron/Calcium ( Vitamin) 1 each PO QDAY [facility] Ondansetron HCl (Zofran) 4 mg IV Q6H PRN PRN Reason: Nausea And Vomiting Simethicone (Mylicon) 80 mg PO Q6H PRN PRN Reason: Gas pain Trimethoprim/Sulfamethoxazole (Bactrim Ds) 1 each PO Q12HR [facility] Last Admin: 12/28/16 06:14 Dose: 1 each Past psychiatric history - Past Medical History Past Medical History: other (Previous ) Past Surgical History: No surgical history - past Psychiatric treatment and history Psych: Bipolar, Depression, Schizophrenia psychiatric treatment history: A inpatient [facility] Nov 2016. Denies fam psy hx. Mental Status Exam - Vital signs Last Vital Signs Temp 98.9 F 12/28/16 09:44 Pulse 85 12/28/16 13:41 Resp 15 12/28/16 09:44 BP 120/58 12/28/16 13:05 Pulse Ox 99 12/28/16 13:41 - Exam Narrative exam: ROS (-) psychosis, (-) depression MSE: Appearance: calm, cooperative Behavior: poor eye contact Speech: regular rate and tone Mood: "I feel good" Affect: flat Thought Process: circumstantial Thought Content: denies SI/HI's and AVH's Motor Activity: ambulatory Cognition: A/Ox3 Insight: fair Judgment: fair Results Result Diagrams: 12/27/16 13:31 12/27/16 13:31 Abnormal lab results 12/27/16 12/27/16 Range/Units 13:31 13:31 RBC 3.51 L (3.65-5.03) M/mm3 Hgb 9.6 L (10.1-14.3) gm/dl Hct 29.9 L (30.3-42.9) % MCH 27 L (28-32) pg Carbon Dioxide 20 L (22-30) mmol/L BUN 6 L (7-17) mg/dL Creatinine 0.6 L (0.7-1.2) mg/dL Alkaline Phosphatase 139 H (35-129) units/L Albumin 3.2 L (3.9-5) g/dL All other labs normal. Assessment and Plan Assessment and plan: Impression: Hx of Schizophrenia/Bipolar. This is a 31 y.o. AA and 32w5d. She was admitted to treat an bacterial infection. Today patient is calm and cooperative during assessment. She was able to tell me the reason she was admitted to [facility] and where she resides. Patient reside at a transitional home in [place], [place]. She was transported here by the transitional home director, Joanie Wheatley. Patient is seen at the [facility] ([facility] She denies SI/HI's and AVH's. Collateral Information (Joanie Wheatley) - Miss Wheatley confirmed that patient reside at a transitional home and have no problem with her returning. She stated since November 2016, patient have not had a psychotic episode. She states that [facility] provides outpatient psy service for the patient. She states that they visit the patient once a week. She confirmed that the patient do have a son who reside at the transitional home with her. Recommendation/Plan: Patient can continue her current medication regimen and follow up with her psychiatrist in the outpatient setting. Psychiatry sign off this patient. Reconsult when indicated.
--- NOTE | 2016-12-28 16:53 | Discharge Summary ---
Providers - Providers Date of Admission: 12/27/16 13:09 Date of discharge: 12/28/16 Attending physician: FLOYD AMAYA 12/27/16 Consult to Case Management [CONS] Routine Services Needed at Discharge: Veterinary Epidemiologist Notified:: EZIO Phone number called:: [phone] Was contact made?: Yes If yes, spoke with:: EZIO Bruno called:: 13:50 Additional Physician Instructions: please see previous admission notes ? living conditions 12/27/16 13:20 Consult to Mental Health [CONS] Routine Reason For Exam: pt has previous dx of bipolar and is [address] consult to:: ED CRISIS Notified:: AUGUSTUS Phone number called:: [phone] Was contact made?: Yes If yes, spoke with:: AUGUSTUS Bruno called:: 13:50 Primary care physician: OCCUPATIONAL HEALTH MANAGER Hospitalization Condition: Good Hospital course: uncomplicated treated as requested for UTI Disposition: DISCHARGED TO HOME OR SELFCARE - Discharge Diagnoses (1) 32 weeks gestation of Status: Acute Comment: follow up with provider of record in one week (2) Cystitis during in third trimester, antepartum Status: Acute Comment: RX Bactrim DS @ discharge Core Measure Documentation - Palliative Care Palliative Care/ Comfort Measures: Not Applicable - Core Measures Any of the following diagnoses?: none - VTE Discharge Requirements Deep Vein Thrombosis/Pulmonary Embolism Present on Admission: No Has pt received <5 days of overlap therapy or INR<2.0: No Anticoagulant overlap therapy prescribed at discharge: No Contraindication No Overlap Therapy order at DC: Not Indicated - Acute PR Discharge Requirements Aspirin at discharge: No Reason for no aspirin on DC: Medical contraindication MICHELET/ARB for LVSD if EF <40%: Not Applicable Reason for no MICHELET/ARB: Medical contraindication Beta kavita at discharge: No Reason for no beta kavita on DC: Medical contraindication Statin for LDL = or >100 mg/dl on DC: Not Applicable Reason for no statin on DC: Medical contraindication - Heart Failure Discharge Requirements MICHELET/ARB for LVSD if EF <40%: Not Applicable Reason for no MICHELET/ARB: Medical contraindication Beta kavita at discharge: No Reason for no beta kavita on DC: Medical contraindication - Stroke Discharge Requirements Statin for LDL = or >70 mg/dl on DC: Not Applicable Reason for no statin on DC: Not Indicated Anticoag for atrial fib/atrial flutter: Not Applicable Antithrombotic for ischemic stroke: No Reason for no antithrombotic on DC: Not Indicated Exam - Constitutional Vitals: Temp Pulse Resp BP Pulse Ox 97.9 F 82 15 120/58 100 12/28/16 13:05 12/28/16 13:46 12/28/16 09:44 12/28/16 13:05 12/28/16 13:46 General appearance: Present: no acute distress, well-nourished - EENT Eyes: Present: EOM intact ENT: hearing intact, clear oral mucosa, dentition normal - Neck Neck: Present: supple, normal ROM - Respiratory Respiratory effort: normal - Cardiovascular Rhythm: regular - Extremities Extremities: no ischemia, pulses intact, No edema Peripheral Pulses: within normal limits - Abdominal General gastrointestinal: Present: deferred Female genitourinary: Present: deferred - Rectal Rectal Exam: deferred - Integumentary Integumentary: Present: clear, warm, dry - Musculoskeletal Musculoskeletal: strength equal bilaterally - Psychiatric Psychiatric: appropriate mood/affect, other (please see MH note ) Plan Activity: no restrictions Diet: regular Special Instructions: other (follow up with your Mental Health provider in 1 week and your OB in 1 week) Follow up with: PRIMARY CARE, [Primary Care Provider] - 7 Days CHELSEA ORNELAS CNM [Advanced Practice Nurse] - 7 Days (Please call [facility] for an appointment in one week. Call your Mental health provider for an appointment in 1 week. Please take medication as prescribed. )
== END 2016-12-28 18:03 | disposition home or self-care (01) | DRG 781 ==
LOC: LD 12:54 → OBSVTOIN 13:09 → LD 13:09
PROVIDERS: ADMIT Obstetrics & Gynecology; ATTEND Obstetrics & Gynecology
DX: O23.13 Infections of bladder in pregnancy, third trimester (principal); B96.89 Other specified bacterial agents as the cause of diseases classified elsewhere; O99.343 Other mental disorders complicating pregnancy, third trimester; F31.9 Bipolar disorder, unspecified; Z3A.32 32 weeks gestation of pregnancy
CPT/HCPCS: 36415; 80053; 81001; 85025; 86850; 86900; 86901; G0379; J0696; J7120

== ENCOUNTER 2017-02-05 21:38 | Outpatient (CLI) | payer MEDICAID | END 2017-02-05 23:18 | disposition home or self-care (01) | LOC: TRG 21:38 | PROVIDERS: ATTEND Obstetrics & Gynecology | DX: O47.03 False labor before 37 completed weeks of gestation, third trimester (principal); Z3A.36 36 weeks gestation of pregnancy ==

== ENCOUNTER 2017-02-08 15:00 | Emergency (ER) | payer MEDICAID ==
[2017-02-08 15:58] LABS: Basophils % (Auto) 0.4 % (0.0-1.8); Hematocrit 29.2 % (30.3-42.9); Hemoglobin 9.4 gm/dl (10.1-14.3); Mean Corpuscular HGB Conc 32 % (30-34); Mean Corpuscular Hemoglobin 27 pg (28-32); Mean Corpuscular Volume 82 fl (79-97); Platelet Count 152 K/mm3 (140-440); Red Blood Count 3.56 M/mm3 (3.65-5.03); Red Cell Distribution Width 13.9 % (13.2-15.2); White Blood Count 6.3 K/mm3 (4.5-11.0)
[2017-02-08 16:03] LABS: Urine Drugs of Abuse Note Disclamer
[2017-02-08 16:09] LABS: Anion Gap 16 mmol/L; Blood Urea Nitrogen 7 mg/dL (7-17); Calcium 8.3 mg/dL (8.4-10.2); Carbon Dioxide 21 mmol/L (22-30); Chloride 103.4 mmol/L (98-107); Glucose 79 mg/dL (65-100); Potassium 3.6 mmol/L (3.6-5.0); Sodium 137 mmol/L (137-145)
[2017-02-08 16:13] LABS: Bilirubin,Urine NEG (Negative); Blood,Urine NEG (Negative); Ketones,Urine NEG (Negative); Leukocyte Esterase,Urine NEG (Negative); Mucus,Urine 2+ /HPF; Nitrite,Urine NEG (Negative); RBC,Urine < 1.0 /HPF (0.0-6.0)
--- NOTE | 2017-02-08 20:48 | Emergency Department Report ---
HPI - General Chief Complaint: Psych Time Seen by Provider: 02/08/17 20:21 - HPI HPI: This is a 32-year-old Af[place] female who presents to the emergency department with complaint of depression and suicidal ideations. The patient is 8 months and with one child. She says that she is depressed because the boyfriend "lose his job more than he loves me in my child." She denies any abdominal pain, vaginal bleeding, fever, nausea, vomiting or any other physical complaints at this time. She does have a past medical history of bipolar disorder and schizophrenia but is not currently on any medications. She says she was dropped off by her therapist. ED Past Medical Hx - Past Medical History Previous Medical History?: Yes Hx Hypertension: No Hx Diabetes: No Hx Deep Vein Thrombosis: No Hx Renal Disease: No Hx Sickle Cell Disease: No Hx Seizures: No Hx Psychiatric Treatment: Yes (Bipolar, Schizophrenia) Hx Asthma: No Hx COPD: No Hx HIV: No - Surgical History Past Surgical History?: No - Social History Smoking Status: Never Smoker Substance Use Type: None - Medications Home Medications: Home Medications Medication Instructions Recorded Confirmed Last Taken Type Vit W-Ca,Fe,FA(<1 mg) 1 each PO QDAY #30 tablet 07/06/16 11/18/16 Unknown Rx [ Vitamins] HYDROcodone/APAP 5-325 [[place] 1 each PO Q6HR PRN #10 tablet 10/01/16 11/18/16 Unknown Rx 5/325] Nitrofurantoin [place]/M-Cryst 100 mg PO Q12HR #14 capsule 10/01/16 11/18/16 Unknown Rx [Macrobid CAP] Sulfamethoxazole/Trimethoprim 1 each PO BID #10 tablet 12/28/16 Unknown Rx [Bactrim DS TAB] ED Review of Systems ROS: Stated complaint: MH/EVAL/ 8 MO PREG Other details as noted in HPI Comment: All other systems reviewed and negative Constitutional: denies: chills, fever Eyes: denies: eye pain, eye discharge, vision change ENT: denies: ear pain, throat pain Respiratory: denies: cough, shortness of breath, wheezing Cardiovascular: denies: chest pain, palpitations Gastrointestinal: denies: abdominal pain, nausea, diarrhea Genitourinary: denies: urgency, dysuria, discharge Musculoskeletal: denies: back pain, joint swelling, arthralgia Skin: denies: rash, lesions Neurological: denies: headache, weakness, paresthesias Physical Exam - Physical Exam Vital Signs: Vital Signs 02/08/17 15:33 Temperature 98.4 F Pulse Rate 73 Respiratory 16 Rate Blood Pressure 113/83 O2 Sat by Pulse 100 Oximetry Physical Exam: GENERAL: The patient is well-developed well-nourished. HEENT: Normocephalic. Atraumatic. Extraocular motions are intact. Patient has moist mucous membranes. Pupils equal reactive to light bilaterally. NECK: Supple. Trachea is midline. CHEST/LUNGS: Clear to auscultation. There is no respiratory distress noted. HEART/CARDIOVASCULAR: Regular. There is no tachycardia. There is no gallop rub or murmur. ABDOMEN: Abdomen is soft, nontender. Patient has normal bowel sounds. Gravid uterus is palpable just below the xiphoid process. SKIN: Skin is warm and dry. NEURO: The patient is awake, alert, and oriented. The patient is cooperative. The patient has no focal neurologic deficits. The patient has normal speech. MUSCULOSKELETAL: There is no tenderness or deformity. There is no limitation range of motion. There is no evidence of acute injury. ED Course Vital Signs 02/08/17 15:33 Temperature 98.4 F Pulse Rate 73 Respiratory 16 Rate Blood Pressure 113/83 O2 Sat by Pulse 100 Oximetry ED Medical Decision Making - Lab Data Result diagrams: 02/08/17 15:41 02/08/17 15:41 - Radiology Data Radiology results: report reviewed ultrasound shows a live intrauterine at 36 weeks. - Medical Decision Making 32-year-old female who is about 36 weeks presents with suicidal ideations and depression over the attention she appears to be getting by her significant other. She has a plan to overdose on pills. For this reason the patient has been made a 1013. Labs are unremarkable including blood alcohol level and urine drug screen. The was evaluated with a ultrasound that shows a live intrauterine . Vital signs stable throughout her ED course. Patient appears medically cleared for any type of psychiatric placement. - Differential Diagnosis , depression, bipolar disorder Critical Care Time: No Critical care attestation.: If time is entered above; I have spent that time in minutes in the direct care of this critically ill patient, excluding procedure time. ED Disposition Clinical Impression: Suicidal ideations Qualifiers: Weeks of gestation: 36 weeks Qualified Code(s): Z3A.36 - 36 weeks gestation of Depression Qualifiers: Depression Type: unspecified Qualified Code(s): F32.9 - Major depressive disorder, single episode, unspecified Disposition: DC/TX-65 PSY HOSP/PSY UNIT Is pt being admited?: No Condition: Stable Referrals: PRIMARY CARE, [Primary Care Provider] - 3-5 Days Time of Disposition: 01:53
--- NOTE | 2017-02-09 00:24 | Ultrasound Report ---
FINAL REPORT PROCEDURE: US OB \T\gt; = 14 WEEKS FETUS TECHNIQUE: Real-time limited sonographic examination was performed for evaluation of size, position, heartbeat, fluid volume for each fetus with image documentation (1 or more fetuses). CPT 61543 HISTORY: , medical clearance COMPARISON: No prior studies are available for comparison. FINDINGS: FETUS IUP: Single living intrauterine . Position: Cephalic. Placental position: Fundal and left lateral and grade 2, Without previa . Amniotic fluid volume: Normal . Heart rate and rhythm: 157 BPM, Regular . anatomic survey: Normal . MEASUREMENTS BPD: 9 centimeters corresponding to 36 weeks and 4 days. HC: 31.9 centimeters correspond at 36 weeks. AC: 33.6 centimeters correspond at 37 weeks and 4 days. FL: 7.2 centimeters correspond at 37 weeks. Mean Gestational Age (composite criteria): 36 weeks and 5 days. Ratio biometry: Normal . Estimated Weight: 3118 grams. Interval growth: Appropriate . Estimated Due Date (earliest scan): 03/03/2017. IMPRESSION: 1. Single living intrauterine gestation at approximately 36 weeks and 5 days. 2. EDC by US 03/03/2017.
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
[2017-02-12 07:50] VITALS: BP 104/87
--- NOTE | 2017-02-12 09:55 | Progress Note ---
Subjective - Reason for Consult Consult date: 02/12/17 Reason for consult: Psychiatry Follow-up - Chief Complaint Chief complaint: "I have to get it together" This is a 32-year-old Afro-[place] female who presented to the emergency department with complaint of depression and suicidal ideation with a plan to overdose. Today patient is calm and cooperative during the assessment. She stated that she would like for her boyfriend to spend more time with her because she is . She stated that she felt hurt by him a couple days ago , that's why she felt depressed. She stated that she is "over that" and look forward to being a better mom moving forward. She admitted not taken her risperdal and cogentin (home meds) for a couple weeks. She denies psychotic/ depression symptoms. Per Estefani Wheatley [phone] her senior living director, patient has issues when she cannot have "sex." She stated when the patient haven 't been sexually active, her demeanor changes. She stated that the patient has been taking her medications. The patient has a son 4 years old that resides with her. Per Estefani, the child is in a safe environment. Mental Status Exam - Vital signs Last Vital Signs Temp 98 F 02/12/17 07:49 Pulse 66 02/12/17 07:49 Resp 18 02/12/17 07:49 BP 104/87 02/12/17 07:49 Pulse Ox 97 02/12/17 07:49 - Exam Narrative exam: MSE: Appearance: calm, cooperative Behavior: poor eye contact Speech: regular rate and tone Mood: "I feel good" Affect: congruent Thought Process: linear Thought Content: denies SI/HI's and AVH's Motor Activity: ambulatory Cognition: A/Ox3 Insight: fair Judgment: fair Assessment and Plan Impression: Today patient is calm and cooperative during the assessment. She stated that she would like for her boyfriend to spend more time with her because she is . She stated that she felt hurt by him a couple days ago , that's why she felt depressed. She stated that she is "over that" and look forward to being a better mom moving forward. Estefani Wheatley stated that patient can return home once discharged. Recommendation/Plan: Rescind 1013. Patient use the [facility] as her outpatient psy services. She has a appointment tomorrow with [facility]. Patient has home medications currently.
== END 2017-02-12 20:45 | disposition home or self-care (01) ==
LOC: LD 02-10 11:00 → ED 02-10 11:00 → TRG 02-10 11:05 → ED 02-10 11:05 → TRG 02-10 11:05 → LD 02-10 11:05 → EDSTATUS 02-10 11:08 → APU 02-11 02:39 → LD 02-11 02:39 → ED 02-12 20:45
DX: O99.343 Other mental disorders complicating pregnancy, third trimester (principal); R45.851 Suicidal ideations; F31.9 Bipolar disorder, unspecified; F20.9 Schizophrenia, unspecified; Z3A.36 36 weeks gestation of pregnancy
CPT/HCPCS: 36415; 59025; 76805; 80048; 80307; 81001; 81025; 85025; 99284; G0480; 80320